=== PATIENT | female | born 1955 | race Caucasian/White ===

== ENCOUNTER → 2017-03-07 | Outpatient (CLI) | payer OTHER | LOC: RAD 10:50 | DX: R92.2 Inconclusive mammogram (principal) ==

== ENCOUNTER → 2017-03-17 | Outpatient (CLI) | payer OTHER ==
--- NOTE | ~2017-03-17 | S ---
[facility] [place] [address] SURGICAL PATH RPT PROCEDURE Name: KALI SUAREZ Room #: [facility].#: [id number] Admission: 03/17/17 Date of : 53 Discharge: Report #: [id number] Path Case #: [id number] PATHOLOGY REPORT COLLECTION DATE: 03/17/2017 RECEIVED DATE: 03/17/2017 SUBMITTING PHYS: Dr. Daniel Bowen OTHER PHYS: SIVAKUMAR Navarrete SPECIMEN(S) RECEIVED: A.Left medial breast calcifications * * * * * * * * * * * * FINAL DIAGNOSIS: A. Breast, left medial breast calcifications, stereotactic needle core biopsy: - Benign breast tissue with duct ectasia, foamy histiocytes, dense chronic inflammation, stromal fibrosis as well as other reparative changes associated with focal tiny calcification as well as abundant apocrine metaplasia. - Negative for atypia or malignancy. COMMENT: Co-review: Dr. Pickens. Rare calcifications are identified in the multiple levels obtained. Please correlate clinically with pre and post procedure radiographs to ensure adequate sampling. (IUV:csd; d/t: 03/20/2017) PATHOLOGIST: Dolly Mclaughlin M.D. REPORT ELECTRONICALLY SIGNED BY: Dolly Mclaughlin M.D. DATE/TIME: 03/21/2017 10:58 * * * * * * * * * * * * GROSS PATHOLOGY: The specimen is received in formalin labeled "Kali Suarez, left," and additionally labeled on the requisition as, "left medial". Received are multiple needle cores of yellow-browne fibrofatty tissue measuring 3.2 x 2.4 x 0.5 cm in aggregate dimensions. Also received is a plastic cassette containing multiple cores of yellow-browne fibrofatty tissue measuring 1.8 x 1.6 x 0.3 cm in aggregate dimensions. The tissue in the cassette is transferred to cassette A1, and the remaining tissue is submitted in its entirety in cassette A2 and A3. The cold ischemic time is 4 minutes. The total formalin fixation time is 58 hours and 17 minutes. (CAA; 03/18/2017) [facility] [address] [place] [address] SURGICAL PATH RPT PROCEDURE Name: SUAREZKALI Room #: [facility].#: [id number] Admission: 03/17/17 Date of : 53 Discharge: Report #: [id number] Path Case #: [id number] CLINICAL HISTORY: Left breast calcifications INITIAL CPT CODE(S): A; 72786 Professional services performed by [facility] at [facility] [address] [place] [address] Technical services performed by [facility] at [address] [place] [address], [facility] [address] [address]. [facility] [address] [place] [id number] PHONE: [phone] DIRECTOR: Irvin Lamas M.D. * * * END OF REPORT * * *
== END | disposition home or self-care (01) ==
LOC: BC 07:13 → RADSTEREO 10:35 → BC 11:26
DX: N60.82 Other benign mammary dysplasias of left breast (principal); N60.42 Mammary duct ectasia of left breast; N61.0 Mastitis without abscess; N60.32 Fibrosclerosis of left breast

== ENCOUNTER → 2017-07-04 | Outpatient (CLI) | payer OTHER | LOC: RAD 07:16 | DX: Z12.31 Encounter for screening mammogram for malignant neoplasm of breast (principal) ==

== ENCOUNTER → 2019-07-18 | Outpatient (CLI) | payer OTHER | LOC: RAD 02:16 | DX: Z12.31 Encounter for screening mammogram for malignant neoplasm of breast (principal) ==